=== PATIENT | female | born 2000 | race Caucasian/White ===

== ENCOUNTER 2022-08-03 21:20 | Emergency (ER) | payer OTHER, SELFPAY ==
[2022-08-03 21:26] VITALS: BP 155/99; PULSE 102; RESP 16; TEMP 36.7; O2SAT 100
--- NOTE | 2022-08-03 21:43 | W.ED.GENADLT ---
HPI - General Adult General: Chief complaint: Needlestick/Injury/Exposure Stated complaint: Needle stick Time Seen by Provider: 08/03/22 21:40 History of Present Illness: Ms. Gonzales is a 21-year-old female without significant past medical history presents to the emergency department due to needlestick while at work. 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 Immediately had some pain however no injection of residual Lovenox. Did wash the area. Reports history of vaccinations. Denies known exposure to hepatitis C or HIV. No other specific changes in health, exacerbating, or alleviating factors identified. Radiation: extremity Severity: mild Quality: burning and stabbing Associated symptoms: Reports no associated symptoms Review of Systems General: Reports: 10 or more systems reviewed and unremarkable except in HPI and below PFSH ED PFSH: Medical History No significant past medical history Surgical History No significant past surgical history Physical Exam Const: COMMON NORMALS: alert GENERAL APPEARANCE: cooperative and well developed HENMT: COMMON NORMALS: normocephalic and atraumatic HEAD & SCALP: normocephalic and atraumatic Eye: COMMON NORMALS: conjunctivae normal CONJUNCTIVA: Yes conjunctivae normal SCLERA: sclerae normal Neck/C-Spine: COMMON NORMALS: supple GENERAL: Yes trachea midline Resp: COMMON NORMALS: normal respiratory effort EFFORT & INSPECTION: Yes able to speak in complete sentences Cardio: COMMON NORMALS: regular rate and regular rhythm RATE: regular rate RHYTHM: regular rhythm GI: COMMON NORMALS: Soft to palpation PALPATION: Yes Soft to palpation and No Tenderness to palpation present (GI) Extremity: NARRATIVE EXTREMITY EXAM: Small nonbleeding puncture wound to the lateral dorsal aspect of the mid finger GENERAL: Yes normal exam except as noted and No edema Neuro: COMMON NORMALS: moves all extremities SENSORIUM/ORIENTATION: Yes alert and No Orientation impaired Psych: COMMON NORMALS: mental status grossly normal and Normal thought process present THOUGHT PROCESS: Normal thought process present Course Vital Signs: Vital signs: Vital Signs Temperature 98.1 F 08/03/22 21:26 Pulse Rate 102 H 08/03/22 21:26 Respiratory Rate 16 08/03/22 21:26 Blood Pressure 155/99 08/03/22 21:26 Pulse Oximetry 100 08/03/22 21:26 Oxygen Delivery Me thod 08/03/22 21:26 MDM - General Adult Medical Decision Making 21-year-old female presenting with needlestick injury that occurred at work. Weight And Test Bar Clerk notified and provided paperwork. Discussed testing appropriate per protocol and patient was agreeable. No evidence of hepatitis B infection, hepatitis C infection, or HIV. Patient is up-to-date on vaccines including tetanus shot. Unfortunately we are unable to obtain consent for source testing. I discussed this with the patient including options for postexposure prophylaxis. I discussed risk of transmission from unknown source and patient wishes to proceed with postexposure prophylaxis which will be ordered. Laboratory studies to evaluate hematologic and metabolic status ordered. Satisfactory for outpatient management. Medical Records I reviewed the patient's medical records. Lab Data I reviewed the patient's lab results. : 08/03/22 21:48 08/03/22 21:48 Laboratory Results WBC 7.8 10^3/uL (4.0-10.0) 08/03/22 21:48 RBC 4.55 10^6/uL (4.1-5.3) 08/03/22 21:48 Hgb 12.7 g/dL (11.5-15.3) 08/03/22 21:48 Hct 39.1 % (37.0-47.0) 08/03/22 21:48 MCV 85.9 fl (81-99) 08/03/22 21:48 MCH 27.9 pg (28.0-34.0) L 08/03/22 21:48 MCHC 32.5 g/dL (30.0-36.0) 08/03/22 21:48 RDW 13.4 % (12.1-15.1) 08/03/22 21:48 Plt Count 268 10^3/cmm (130-400) 08/03/22 21:48 MPV 10.9 fL (7.4-10.4) H 08/03/22 21:48 Neut % (Auto) 61.8 % 08/03/22 21:48 Lymph % (Auto) 29.0 % 08/03/22 21:48 [place] % (Auto) 7.5 % 08/03/22 21:48 Eos % (Auto) 0.9 % 08/03/22 21:48 Baso % (Auto) 0.5 % 08/03/22 21:48 Neut # (Auto) 4.79 10^3/uL (1.8-7.7) 08/03/22 21:48 Lymph # (Auto) 2.3 10^3/uL (0.8-4.8) 08/03/22 21:48 [place] # (Auto) 0.6 10^3/uL (0.2-0.9) 08/03/22 21:48 Eos # (Auto) 0.1 10^3/uL (0.0-0.8) 08/03/22 21:48 Baso # (Auto) 0.0 10^3/uL (0.0-0.1) 08/03/22 21:48 Nucleated RBC % (auto) 0 % 08/03/22 21:48 Nucleated RBCs # 0.0 /100WBC 08/03/22 21:48 Sodium 137 mmol/L (136-145) 08/03/22 21:48 Potassium 4.3 mmol/L (3.5-5.1) 08/03/22 21:48 Chloride 99 mmol/L (98-107) 08/03/22 21:48 Carbon Dioxide 23 mmol/L (22-29) 08/03/22 21:48 Anion Gap 19.3 (5-19) H 08/03/22 21:48 BUN 14 mg/dL (6-20) 08/03/22 21:48 Creatinine 0.8 mg/dL (0.5-0.9) 08/03/22 21:48 GFR Calculation 89.7 mL/min (90-130) L 08/03/22 21:48 Glucose 86 mg/dL (65-115) 08/03/22 21:48 Calculated Osmolality 284 mOsm/kg (285-295) L 08/03/22 21:48 Calcium 10.0 mg/dL (8.5-10.5) 08/03/22 21:48 Total Bilirubin 0.3 mg/dL (0.15-1.2) 08/03/22 21:48 AST 17 U/L (0-32) 08/03/22 21:48 ALT 12 U/L (0-33) 08/03/22 21:48 Alkaline Phosphatase 77 U/L (35-105) 08/03/22 21:48 Total Protein 8.0 g/dL (6.6-8.7) 08/03/22 21:48 Albumin 4.7 g/dL (3.5-5.2) 08/03/22 21:48 Globulin 3.3 g/dL (1.3-4.6) 08/03/22 21:48 HCG, Qual Negative (Negative) 08/03/22 21:40 Hep Bs Antigen Non-reactive (Nonreactive) 08/03/22 21:40 Hep Bs Antibody > 1000.0 (11.5-1000) H 08/03/22 21:40 Hepatitis C Antibody Non-reactive (Nonreactive) 08/03/22 21:40 HIV 1&2 Ab & HIV 1 Ag Non-reactive (Non-Reactiv) 08/03/22 21:40 HIV 1&2 Antibody Non-reactive (Non-Reactiv) 08/03/22 21:40 Discharge Plan Discharge Patient Disposition: Home Clinical Impression: Exposure to blood or body fluid, Needle stick injury of finger Condition: Stable Prescriptions: New Truvada 200-300 mg tablet 1 tab PO DAILY Qty: 28 0RF raltegravir 400 mg tablet 400 mg PO BID 28 Days Qty: 56 0RF Discharge Orders: Discharge ED (Routine); Ordered 08/03/22 Ordered By: Lonnie Bond Discharge Diet: Usual diet Discharge Activity: Increase activity as tolerated Patient Instructions: Needle Stick Injuries (ED), Postexposure Prophylaxis (ED) Activity Restrictions/Additional Instructions: Please follow-up with employee health. Return to the emergency department for any concerns that you have that you feel need emergency department evaluation. Coding Level of Care Code ED Packaging Line Attendant for Nicole Fwd Exam Comprehensive
[2022-08-03 22:24] LABS: HCG, Serum Qual Negative (Negative)
[2022-08-03 22:43] LABS: HIV 1 & 2 Antibody Non-Reactive (Non-Reactiv); HIV 1 & 2 Antigen Non-Reactive (Non-Reactiv)
[2022-08-03 23:10] LABS: Hepatitis B Surface Antigen Non-Reactive (Nonreactive); Hepatitis C Virus Antibody Non-Reactive (Nonreactive)
[2022-08-03 23:47] LABS: Basophils % 0.5 %; Eosinophils # 0.1 10^3/uL (0.0-0.8); Eosinophils % 0.9 %; Hematocrit 39.1 % (37.0-47.0); Hemoglobin 12.7 g/dL (11.5-15.3); Lymphocytes # 2.3 10^3/uL (0.8-4.8); Mean Corpuscular HGB Conc 32.5 g/dL (30.0-36.0); Mean Corpuscular Hemoglobin 27.9 pg (28.0-34.0); Mean Corpuscular Volume 85.9 fl (81-99); Mean Platelet Volume 10.9 fL (7.4-10.4); Monocytes # 0.6 10^3/uL (0.2-0.9); Monocytes % 7.5 %; Neutrophils # 4.79 10^3/uL (1.8-7.7); Neutrophils % 61.8 %; Nucleated Red Blood Cells % 0 %; Platelet Count 268 10^3/cmm (130-400); Red Blood Count 4.55 10^6/uL (4.1-5.3); Red Cell Distribution Width 13.4 % (12.1-15.1); White Blood Count 7.8 10^3/uL (4.0-10.0)
[2022-08-04 00:16] LABS: Alanine Aminotransferase 12 U/L (0-33); Albumin Level 4.7 g/dL (3.5-5.2); Alkaline Phosphatase 77 U/L (35-105); Aspartate Amino Transferase 17 U/L (0-32); Blood Urea Nitrogen 14 mg/dL (6-20); Carbon Dioxide 23 mmol/L (22-29); Chloride 99 mmol/L (98-107); Globulin 3.3 g/dL (1.3-4.6); Glomerular Filtration Rate 89.7 mL/min (90-130); Glucose 86 mg/dL (65-115); Osmolality Calculated 284 mOsm/kg (285-295); Sodium 137 mmol/L (136-145); Total Bilirubin 0.3 mg/dL (0.15-1.2)
[2022-08-04 00:30] LABS: Anion Gap 19.3 (5-19)
[2022-08-04 00:31] LABS: Potassium 4.3 mmol/L (3.5-5.1)
[2022-08-04 01:00] LABS: Hepatitis B Surface AB > 1000.0 (11.5-1000)
== END 2022-08-03 23:40 | disposition home or self-care (01) ==
PROVIDERS: Emergency Provider Emergency Medicine
DX: Z77.21 Contact with and (suspected) exposure to potentially hazardous body fluids (principal); W46.1XXA Contact with contaminated hypodermic needle, initial encounter; Y99.0 Civilian activity done for income or pay
CPT/HCPCS: 80053; 84703; 85025; 86706; 86803; 87340; 87806; 99283

== ENCOUNTER 2023-02-06 01:35 | Emergency (ER) | payer OTHER, SELFPAY ==
[2023-02-06 02:19] VITALS: BP 140/100; PULSE 107; RESP 18; O2SAT 99
--- NOTE | 2023-02-06 02:26 | W.ED.GENADLT ---
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 She states that she stuck herself in her left thumb with a dirty needle. Denies any pain currently has no other complaints at this time. Review of Systems Musc: Reports: extremity pain Skin/Breast: Reports: skin pain PFSH ED PFSH: Medical History No significant past medical history Surgical History No significant past surgical history Physical Exam Const: COMMON NORMALS: no acute distress and patient oriented x3 HENMT: COMMON NORMALS: normocephalic HEAD & SCALP: normocephalic Resp: COMMON NORMALS: normal respiratory effort Cardio: COMMON NORMALS: regular rate RATE: regular rate Extremity: NARRATIVE EXTREMITY EXAM: Puncture wound to left thumb no bleeding at this time Neuro: COMMON NORMALS: patient oriented x3 Psych: COMMON NORMALS: mental status grossly normal Skin: NARRATIVE SKIN EXAM: Puncture wound to left thumb Course Vital Signs: Vital signs: Vital Signs Pulse Rate 107 H 02/06/23 02:19 Respiratory Rate 18 02/06/23 02:19 Blood Pressure 140/100 02/06/23 02:19 Pulse Oximetry 99 02/06/23 02:19 Oxygen Delivery Me thod Room Air 02/06/23 02:19 MDM - General Adult Medical Decision Making Patient presents here with a needlestick injury to her left thumb HIV and hepatitis panel drawn she has no signs of any major injury bleeding controlled she is stable for discharge. Discharge Plan Discharge Patient Disposition: Home Clinical Impression: Needlestick injury accident Condition: Stable Prescriptions: No Action Truvada 200-300 mg tablet 1 tab PO DAILY Qty: 28 0RF Discharge Orders: Discharge ED (Routine); Ordered 02/06/23 Ordered By: Veda Lindsey Discharge Diet: Advance as tolerated Discharge Activity: Resume usual activity Patient Instructions: Needle Stick Injuries (ED) Coding Level of Care Code ED Pantograph Machine Set Up Operator for Nicole Johnson
[2023-02-06 03:12] LABS: HIV 1 & 2 Antibody Non-Reactive (Non-Reactiv); HIV 1 & 2 Antigen Non-Reactive (Non-Reactiv)
[2023-02-06 03:22] LABS: Hepatitis A Antibody IgM Non-Reactive (Nonreactive); Hepatitis B Core AB, Total Non-Reactive (Nonreactive); Hepatitis B Surface Antigen Non-Reactive (Nonreactive); Hepatitis C Virus Antibody Non-Reactive (Nonreactive)
[2023-02-06 04:47] LABS: Hepatitis B Surface AB > 1000.0 (11.5-1000)
--- NOTE | 2023-02-09 11:50 | DCPLANNER ---
Addendum entered by Vernell Bro 03/08/23 09:27: Patient had a follow up appointment scheduled with [facility] with Dr. Osborne - patient did attend appointment. Original Note: health club manager called patient due to no primary care physician - patient stated that she would like help in getting established with a provider. health club manager called [facility], gave clinic patients information. A follow up appointment was scheduled for Tuesday, March 07, 2023 at 11:[address] Osborne. Patient is aware of appointment.
== END 2023-02-06 02:44 | disposition home or self-care (01) ==
PROVIDERS: Emergency Provider Emergency Medicine
DX: S61.032A Puncture wound without foreign body of left thumb without damage to nail, initial encounter (principal); W46.1XXA Contact with contaminated hypodermic needle, initial encounter; Y99.0 Civilian activity done for income or pay
CPT/HCPCS: 86705; 86706; 86709; 86803; 87340; 87806; 99283

== ENCOUNTER → 2023-03-07 11:37 | Outpatient (BNVA) | payer OTHER, SELFPAY | PROVIDERS: PCP Family Medicine; Visit Provider Family Medicine | DX: Z12.4 Encounter for screening for malignant neoplasm of cervix (principal) | CPT/HCPCS: 88175 ==

== ENCOUNTER → 2023-03-22 16:58 | Outpatient (BNVA) | payer OTHER, SELFPAY | PROVIDERS: PCP Family Medicine; Visit Provider Family Medicine | DX: Z12.4 Encounter for screening for malignant neoplasm of cervix (principal); Z83.2 Family history of diseases of the blood and blood-forming organs and certain disorders involving the immune mechanism | CPT/HCPCS: 80074; 87806; 88175 ==

== ENCOUNTER 2023-09-19 22:49 | Emergency (ER) | payer OTHER, SELFPAY ==
[2023-09-19 22:58] VITALS: BP 144/103; PULSE 101; RESP 16; TEMP 36.8; O2SAT 99
--- NOTE | 2023-09-19 22:58 | W.ED.GENADLT ---
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 This just happened minutes ago she denies any pain currently. Associated symptoms: Deny chest pain, headache(s) or rash Review of Systems Const: Denies: fever(s) or chills ENMT: Denies: throat pain or dental pain Card: Denies: chest pain GI: Denies: abdominal pain Musc: Denies: neck pain or back pain Skin/Breast: Denies: rash Neuro: Denies: headache(s) PFSH ED PFSH: Medical History No significant past medical history Surgical History No history of previous surgery Family History Father Clotting disorder unprovoked dvt at 40, suspect F5L Sister Clotting disorder Grandfather Cancer melanoma Social History Smoking and tobacco/nicotine status: never used tobacco/nicotine Alcohol intake: never Substance/Drug Use: never Household members: spouse Marital status: Number of children: 0 Current occupational status: employed Current occupation: RN in the ED Leisure activites: other Leisure activities details: walking Sofía/Orthodox: Yazdanism Special sofía needs: No Agree to transfusion: Yes Course Vital Signs: Vital signs: Vital Signs Temperature 98.2 F 09/19/23 22:58 Pulse Rate 101 H 09/19/23 22:58 Respiratory Rate 16 09/19/23 22:58 Blood Pressure 144/103 09/19/23 22:58 Pulse Oximetry 99 09/19/23 22:58 [facility] - General Adult Medical Decision Making Patient presents after a needlestick injury blood was drawn she is stable for discharge No radiology studies performed this visit Discharge Plan Discharge Patient Disposition: Home Clinical Impression: Needlestick injury accident Condition: Stable Prescriptions: No Action No Known Home Medications Discharge Orders: Discharge ED (Routine); Ordered 09/19/23 Ordered By: Veda Lindsey Referrals: Eli Osborne MD [Primary Care Provider] - Discharge Diet: Advance as tolerated Discharge Activity: Resume usual activity Patient Instructions: Needle Stick Injuries (ED) Coding Level of Care Code ED Tool Machinist for Nicole Johnson
[2023-09-19 23:57] LABS: Hepatitis A Antibody IgM Non-Reactive (Nonreactive); Hepatitis B Core AB, Total Non-Reactive (Nonreactive); Hepatitis B Surface Antigen Non-Reactive (Nonreactive); Hepatitis C Virus Antibody Non-Reactive (Nonreactive)
[2023-09-20 00:28] LABS: Hepatitis B Surface AB > 1000.0 (11.5-1000)
[2023-09-27 10:32] LABS: HIV 1 & 2 Antibody Non-Reactive (Non-Reactiv); HIV 1 & 2 Antigen Non-Reactive (Non-Reactiv)
== END 2023-09-19 23:15 | disposition home or self-care (01) ==
PROVIDERS: Emergency Provider Emergency Medicine; PCP Family Medicine
DX: S61.234A Puncture wound without foreign body of right ring finger without damage to nail, initial encounter (principal); W46.0XXA Contact with hypodermic needle, initial encounter; Y92.239 Unspecified place in hospital as the place of occurrence of the external cause; Y99.0 Civilian activity done for income or pay
CPT/HCPCS: 86705; 86706; 86709; 86803; 87340; 87806; 99283

== ENCOUNTER 2023-12-24 23:30 | Emergency (ER) | payer OTHER, SELFPAY ==
[2023-12-24 23:36] VITALS: BP 171/99; PULSE 98; RESP 16; TEMP 36.7; O2SAT 99; BMI 26.6
[2023-12-24 23:47] VITALS: BP 150/95; PULSE 92; RESP 16; O2SAT 97
--- NOTE | 2023-12-24 23:56 | USR_ITS ---
PROCEDURE INFORMATION: Exam: US , Limited Exam date and time: 12/24/2023 11:27 PM Age: 23 years old Clinical indication: Lmp or gestational age (in weeks): 8w 1d; Antepartum complications; Bleeding and other: Cramping; ; Patient HX: G1-p0 presenting with spotting, cramping; Additional info: 8 wks gestation, cramping, bleeding LABS AND CLINICAL REPORTS: Gestational age (Established): 8 w 1 d Estimated due date (Established): 08/03/2024 TECHNIQUE: Imaging protocol: Real-time ultrasound of the maternal uterus with image documentation. Exam focused on the clinical indication. COMPARISON: No relevant prior studies available. FINDINGS: Gestation: Intrauterine gestation heart rate: 167 bpm Amniotic fluid: Amniotic fluid volume is normal. BIOMETRY: Gestational age (AUA): 8 w 1 d Estimated due date (AUA): 08/03/2024 MATERNAL: Uterus: Uterus measures 6.4 cm in height by 6.8 cm width Right ovary/adnexa: Right ovary measures 3.4 x 1.7 x 2.8 cm. Right ovarian volume is 8.38 mL. Left ovary/adnexa: Left ovary measures 2.0 x 2.0 x 1.4 cm. Left ovarian volume is 2.9 mL. US/ OB limited [id number] IMPRESSION: Single live intrauterine gestation with a gestational age of 8 weeks and 1 day.
--- NOTE | 2023-12-24 23:58 | ED_ITS ---
HPI - 2 General: Chief complaint: OB/Uterine Contractions Stated complaint: Vag Bleeding,cramping Time Seen by Provider: 12/24/23 23:50 History of Present Illness: Patient presents to the ER with complaints of vaginal bleeding and cramping x 1 day. Patient says she is 8 weeks by menstrual cycle. Patient is G1, P0, patient has never had bleeding or cramping before tonight. Patient denies any odor, discharge. Patient does have her OB appointment set up but she has not been to it yet. Date of Last Menstrual Period: 10/28/23 Related Data: : 1 Review of Systems 2 General: Reports: 10 or more systems reviewed and unremarkable except in HPI and below PFSH ED 2 PFSH: Medical History No significant past medical history Surgical History No history of previous surgery Family History Father Clotting disorder unprovoked dvt at 40, suspect F5L Sister Clotting disorder Grandfather Cancer melanoma Social History Smoking and tobacco/nicotine status: never used tobacco/nicotine Alcohol intake: never Substance/Drug Use: never Household members: spouse Marital status: Number of children: 0 Current occupational status: employed Current occupation: RN in the ED Leisure activites: other Leisure activities details: walking Sofía/Congregational: Yazidism Special sofía needs: No Agree to transfusion: Yes Female Reproductive History: Date of last menstrual period: 10/28/23 G ravida: 1 Physical Exam 2 Const: COMMON NORMALS: no acute distress, average body habitus, patient oriented x3, no limitations, healthy appearing, alert and well nourished Neck/C-Spine: COMMON NORMALS: no JVD Chest: COMMONS NORMALS: normal inspection of the chest and normal palpation of entire chest wall Resp: COMMON NORMALS: normal respiratory effort, No retractions, No use of accessory muscles and clear to auscultation bilaterally AUSCULTATION: clear to auscultation bilaterally Cardio: COMMON NORMALS: no JVD, regular rate, regular rhythm, S1 normal heart sound present, S2 normal heart sound present, No gallops present (Cardio), No clicks present (Cardio), No murmurs present (Cardio) and No rub (Cardio) R ATE: regular rate RHYTHM: regular rhythm HEART SOUNDS: S1 normal heart sound present and S2 normal heart sound present GI: COMMON NORMALS: Normal to inspection, nondistended, normoactive bowel sounds present, Soft to palpation, non-tender, No hepatosplenomegaly present and no masses PALPATION: Yes Soft to palpation and Yes No hepatosplenomegaly present Neuro: COMMON NORMALS: patient oriented x3 SENSORIUM/ORIENTATION: Yes alert Course 2 Vital Signs: Vital signs: Vital Signs Temperature 98.1 F 12/24/23 23:36 Pulse Rate 81 12/25/23 01:57 Respiratory Rate 18 12/25/23 01:57 Blood Pressure 115/71 12/25/23 01:57 Pulse Oximetry 96 12/25/23 01:57 Oxygen Delivery Me thod Room Air 12/24/23 23:47 MDM - OB/Uterine Contractions Medical Decision Making Patient with vaginal bleeding and cramping. Ultrasound was obtained which showed heart rate of about 160 beats a minute with a gestational age of 8 weeks and 1 day. Lab work was obtained which essentially unremarkable. These results was discussed with the patient and her they will follow-up with Dr. Anderson. Differential Diagnosis Unlikely normal delivery at term, hemorrhage, -induced hypertension, premature labor, pre-eclampsia or eclampsia Medical Records I reviewed the patient's medical records. Lab Data I reviewed the patient's lab results. 12/25/23 00:09 12/25/23 00:09 Radiology Impressions Obstetrics Ultrasound 12/24/23 23:56 IMPRESSION: Single live intrauterine gestation with a gestational age of 8 weeks and 1 day. Laboratory Results WBC 9.92 10^3/uL (3.29-11.43) 12/25/23 00:09 RBC 4.26 10^6/uL (3.85-5.65) 12/25/23 00:09 Hgb 12.80 g/dL (11.27-16.99) 12/25/23 00:09 Hct 37.1 % (36-47) 12/25/23 00:09 MCV 87.1 fl (85-98) 12/25/23 00:09 MCH 30.0 pg (27-33) 12/25/23 00:09 MCHC 34.5 g/dL (30-55) 12/25/23 00:09 RDW 12.0 % (12.1-15.1) L 12/25/23 00:09 Plt Count 200 10^3/cmm (157-399) 12/25/23 00:09 MPV 10.2 fL (7.4-10.4) 12/25/23 00:09 Neut % (Auto) 68.9 % 12/25/23 00:09 Lymph % (Auto) 21.9 % 12/25/23 00:09 [place] % (Auto) 7.6 % 12/25/23 00:09 Eos % (Auto) 1.0 % 12/25/23 00:09 Baso % (Auto) 0.3 % 12/25/23 00:09 Neut # (Auto) 6.84 10^3/uL (1.8-7.7) 12/25/23 00:09 Lymph # (Auto) 2.2 10^3/uL (0.8-4.8) 12/25/23 00:09 [place] # (Auto) 0.8 10^3/uL (0.2-0.9) 12/25/23 00:09 Eos # (Auto) 0.1 10^3/uL (0.0-0.8) 12/25/23 00:09 Baso # (Auto) 0.0 10^3/uL (0.0-0.1) 12/25/23 00:09 Nucleated RBC % (auto) 0 % 12/25/23 00:09 Nucleated RBCs # 0.0 /100WBC 12/25/23 00:09 Sodium 137 mmol/L (136-145) 12/25/23 00:09 Potassium 3.9 mmol/L (3.5-5.1) 12/25/23 00:09 Chloride 103 mmol/L (98-107) 12/25/23 00:09 Carbon Dioxide 22 mmol/L (22-29) 12/25/23 00:09 Anion Gap 15.9 (5-19) 12/25/23 00:09 BUN 6 mg/dL (6-20) 12/25/23 00:09 Creatinine 0.6 mg/dL (0.5-0.9) 12/25/23 00:09 GFR Calculation 122.8 mL/min (90-130) 12/25/23 00:09 Glucose 113 mg/dL (65-115) 12/25/23 00:09 Calculated Osmolality 282 mOsm/kg (285-295) L 12/25/23 00:09 Calcium 8.8 mg/dL (8.5-10.5) 12/25/23 00:09 Total Bilirubin 0.2 mg/dL (0.15-1.2) 12/25/23 00:09 AST 25 U/L (0-32) 12/25/23 00:09 ALT 51 U/L (0-33) H 12/25/23 00:09 Alkaline Phosphatase 60 U/L (35-105) 12/25/23 00:09 Total Protein 6.8 g/dL (6.6-8.7) 12/25/23 00:09 Albumin 3.9 g/dL (3.5-5.2) 12/25/23 00: Globulin 2.9 g/dL (1.3-4.6) 12/25/23 00:09 Ser , Semi-Qnt 350301.00 mIU/mL 12/25/23 00:09 Urine Color Yellow (Yellow) 12/25/23 00:09 Urine Appearance Clear (CLEAR) 12/25/23 00:09 Urine pH 5 (5-7) 12/25/23 00:09 Ur Specific [place] 1.025 (1.005-1.030) 12/25/23 00:09 Urine Protein Neg (Negative) 12/25/23 00:09 Urine Glucose (UA) Norm (Normal) 12/25/23 00:09 Urine Ketones Negative (Negative) 12/25/23 00:09 Urine Blood 2+ (Negative) H 12/25/23 00:09 Urine Nitrate Negative (Negative) 12/25/23 00:09 Urine Bilirubin Neg (Negative) 12/25/23 00:09 Urine Urobilinogen Norm mg/dL (Negative) 12/25/23 00:09 Ur Leukocyte Esterase 1+ (Negative) H 12/25/23 00:09 Urine RBC 0-4 /hpf (0-2) H 12/25/23 00:09 Urine WBC 5-10 /hpf (0-5) H 12/25/23 00:09 Ur Squamous Epith Cells 0-4 /hpf (0-5) H 12/25/23 00:09 Amorphous Sediment Not Reportable 12/25/23 00:09 Urine Bacteria Trace /hpf (NONE) 12/25/23 00:09 All radiology interpretation(s) finalized by discharge Discharge Plan Discharge Patient Disposition: Home Clinical Impression: Vaginal bleeding in Condition: Stable Prescriptions: No Action No Known Home Medications Discharge Orders: Discharge ED (Routine); Ordered 12/25/23 Ordered By: Braydon Garzon Referrals: Eli Osborne MD [Primary Care Provider] - Patient Instructions: (ED) Activity Restrictions/Additional Instructions: Your evaluation today in the ER showed a fetus with a gestational age of approximately 8 weeks and 1 day, your quantitative beta-hCG was 133,011. Please call your OB and inform them of your visit here. If you have worsening bleeding or more cramping please feel free to follow-up with your OB or return to the ER for further evaluation. Coding Level of Care Code ED Audience Coordinator for Nicole Johnson
[2023-12-25 00:09] VITALS: BP 127/80; PULSE 84; RESP 16; O2SAT 96
[2023-12-25 00:13] LABS: Basophils % 0.3 %; Eosinophils # 0.1 10^3/uL (0.0-0.8); Hematocrit 37.1 % (36-47); Lymphocytes # 2.2 10^3/uL (0.8-4.8); Lymphocytes % 21.9 %; Mean Corpuscular HGB Conc 34.5 g/dL (30-55); Mean Corpuscular Volume 87.1 fl (85-98); Mean Platelet Volume 10.2 fL (7.4-10.4); Monocytes # 0.8 10^3/uL (0.2-0.9); Monocytes % 7.6 %; Neutrophils # 6.84 10^3/uL (1.8-7.7); Neutrophils % 68.9 %; Nucleated Red Blood Cells % 0 %; Platelet Count 200 10^3/cmm (157-399); Red Blood Count 4.26 10^6/uL (3.85-5.65); White Blood Count 9.92 10^3/uL (3.29-11.43)
[2023-12-25 00:25] LABS: Add Urine Microscopic? YES; Bilirubin Urine Neg (Negative); Blood Urine 2+ (Negative); Glucose Urine UA Norm (Normal); Ketones Urine Negative (Negative); Leukocyte Esterase Urine 1+ (Negative); Nitrate Urine Negative (Negative); Protein Urine Neg (Negative); RBC Urine 0-4 /hpf (0-2); Specific Gravity, Urine 1.025 (1.005-1.030); Urine Appearance Clear (CLEAR); Urine Color Yellow (Yellow); Urobilinogen Urine Norm (Negative); pH Urine 5 (5-7)
[2023-12-25 00:26] LABS: Add Urine Culture? No; Bacteria Urine TRACE /hpf; Squamous Epithelial Cell Urine 0-4 /hpf (0-5)
[2023-12-25 00:49] LABS: Alanine Aminotransferase 51 U/L (0-33); Albumin Level 3.9 g/dL (3.5-5.2); Alkaline Phosphatase 60 U/L (35-105); Anion Gap 15.9 (5-19); Aspartate Amino Transferase 25 U/L (0-32); Blood Urea Nitrogen 6 mg/dL (6-20); Calcium 8.8 mg/dL (8.5-10.5); Carbon Dioxide 22 mmol/L (22-29); Chloride 103 mmol/L (98-107); Creatinine Clr Calc Pharmacy 149.5369; Globulin 2.9 g/dL (1.3-4.6); Glomerular Filtration Rate 122.8 mL/min (90-130); Glucose 113 mg/dL (65-115); Osmolality Calculated 282 mOsm/kg (285-295); Potassium 3.9 mmol/L (3.5-5.1); Sodium 137 mmol/L (136-145); Total Bilirubin 0.2 mg/dL (0.15-1.2); Total Protein 6.8 g/dL (6.6-8.7)
[2023-12-25 00:54] VITALS: BP 135/83; PULSE 113; RESP 16; O2SAT 91
[2023-12-25 01:00] VITALS: BP 133/75; PULSE 84; RESP 16; O2SAT 95
[2023-12-25 01:30] VITALS: BP 115/71; PULSE 79; RESP 18; O2SAT 94
[2023-12-25 01:57] VITALS: BP 115/71; PULSE 81; RESP 18; O2SAT 96
== END 2023-12-25 01:58 | disposition home or self-care (01) ==
PROVIDERS: Emergency Provider Emergency Medicine; PCP Family Medicine
DX: O20.9 Hemorrhage in early pregnancy, unspecified (principal); Z3A.08 8 weeks gestation of pregnancy
CPT/HCPCS: 76815; 80053; 81001; 84702; 85025; 99284

== ENCOUNTER 2024-07-30 12:19 | Inpatient (IN) | payer OTHER, SELFPAY ==
[2024-07-30] VITALS (59 sets, daily range): BP systolic 102–159; BP diastolic 60–98; PULSE 85–130; RESP 16–17; O2SAT 98–100; BMI 30.2
[2024-07-30] MEDS: miSOPROStol 100 mcg tablet 25 MCG SUBLINGUAL (10:29)
[2024-07-30 13:18] LABS: Basophils % 0.3 %; Eosinophils # 0.1 10^3/uL (0.0-0.8); Eosinophils % 0.9 %; Hematocrit 34.5 % (36-47); Lymphocytes # 1.7 10^3/uL (0.8-4.8); Lymphocytes % 14.4 %; Mean Corpuscular HGB Conc 34.2 g/dL (30-55); Mean Corpuscular Hemoglobin 31.7 pg (27-33); Mean Corpuscular Volume 92.7 fl (85-98); Mean Platelet Volume 10.7 fL (7.4-10.4); Monocytes # 0.9 10^3/uL (0.2-0.9); Monocytes % 7.6 %; Neutrophils # 8.66 10^3/uL (1.8-7.7); Neutrophils % 75.5 %; Nucleated Red Blood Cells % 0 %; Platelet Count 247 10^3/cmm (157-399); Red Blood Count 3.72 10^6/uL (3.85-5.65); White Blood Count 11.46 10^3/uL (3.29-11.43)
[2024-07-30] MEDS: ondansetron 2 mg/ML SDV 2 mL 4 MG IVP (17:05)
[2024-07-30] MEDS: fentaNYL 50 mcg/mL INJ 2mL IVP ×3 (17:06→19:21)
[2024-07-30] MEDS: oxytocin 30 UNIT/500 ML BAG IV (19:00)
[2024-07-30] MEDS: lactated ringers 1,000 ML 999 ML IV (19:45)
--- NOTE | 2024-07-30 20:40 | PC.NURSE ---
07/30/24 at 2023 pitocin rate decreased from 4 to 2 per patient request. Patient not tolerating pain from contractions well.
[2024-07-30] MEDS: ROPivacaine syringe 100 MG/50 ML SYRINGE 13 MG EPIDURAL (20:50)
--- NOTE | 2024-07-30 20:50 | P.ANESUD_ITS ---
Pre-Anesthetic Update Pre-Anesthetic Assessment: Date of Surgery/Procedure: 07/30/24 Preop Madyson gnosis: labor pain Proposed Procedure: epidural Any changes to Pre-Anesthetic Assessment?: No Labs Last 48hrs: Short CBC 07/30/24 Range/Units 10:48 WBC 11.46 H (3.29-11.43) 10^ 3/uL Hgb 11.80 (11.27-16.99) g/ dL Hct 34.5 L (36-47) % MCV 92.7 (85-98) fl Plt Count 247 (157-399) 10^3/c mm Neut % (Auto) 75.5 % Neut # (Auto) 8.66 H (1.8-7.7) 10^3/u L Blood Bank 07/30/24 10:48 Blood Type O Positive Rho(D) Type Rh positive Antibody Screen Negative Vitals: Pulse Rate 107 H 07/30/24 20:45 Pulse Rhythm Regular 07/30/24 10:00 Respiratory Rate 16 07/30/24 19:21 Respiratory Effort Spontaneous, Non- Labored, Easy 07/30/24 18:06 Respiratory Depth Normal 07/30/24 19:21 Respiratory Patter n Normal 07/30/24 19:21 Blood Pressure 133/85 07/30/24 20:45 Pulse Oximetry 100 07/30/24 20:43 Oxygen Delivery Me thod Room Air 07/30/24 18:16 Exam: Pre-Anes Outpt Exam: alert and oriented x 3 Cardiac Studies: No Data to Display
--- NOTE | 2024-07-30 20:51 | P.ANES_ITS ---
Anesthesia Procedures Procedure/Date: 07/30/24 Epidural: Time Out Performed: Yes Consents Signed: Procedure Consent Consent: from patient, risks and benefits reviewed and patient agrees to proceed Lumbar Level: L4-L5 Epidural position: sitting Epidural procedure: sterile prep of area, 1% lidocaine to numb the area, 18 g needle, negative for paresthesia passed, neg for paresthesia, test dose given, 1.5% xylocaine 1:200k epi, placed PCEA, no systemic response, sterile dressing applied, L.U.D. no apparent complications and 0.2% Ropiavacaine @ mls/hr (13) Additional Comments: BALDEMAR at 5.5, negative heme/CSF upon aspiration. taped at 13 at skin. pt reports numb on left side, pain on right. tilted onto right side and bolus given of 100mcg fentanyl and 3mL 0.25% bupi at 2103. another 3ml .25% bupi given at 2112 for right sided pain, tilted all the way up on right side and catheter pulled out to 11 at skin. 5ml 2% lido given at 2130 and 2137. pt s tates left side is completely numb. pain is on right side lower abdomen.states she does not want to replace catheter at this time.
--- NOTE | 2024-07-30 23:20 | PM.OPHPUD ---
Labor & Delivery H&P Update Date of Procedure: July 30, 2024 Date H&P Performed: 07/28/24 Changes to previous documentation: The patient presented to the hospital with spontaneous rupture membranes Admission Diagnosis: 23-year-old 1 at 39 weeks estimated gestational age presenting with spontaneous rupture membranes Preop diagnosis: labor pain Planned procedure: Vaginal delivery Other information: The patient is an otherwise healthy 23-year-old female at 39 weeks estimated gestational age who presented with spontaneous rupture membranes. She was checked and found to be nitrazine positive. Her vaginal vault was full of fluid. Her membranes had ruptured shortly before arriving at the hospital. Otherwise her had been completely unremarkable. Her blood type is O+. Her antibody screen was negative. Her RPR was nonreactive. Her HIV was not reactive. She is rubella immune. Her Pap test was within normal limits. Her drug screen was negative. Her HCV was negative. She passed her 3-hour glucose screen. She was GBS negative. Related Problem List Diagnoses (1) 39 weeks gestation of : (2) Spontaneous rupture of membranes: A&P Assessment and plan (1) 39 weeks gestation of : The patient was not having contractions. She was placed on Cytotec 25 mcg sublingual. She was also placed on Pitocin. An epidural was placed. heart tones have been category 1 throughout most of her hospital stay. Status: Acute (2) Spontaneous rupture of membranes: Status: Acute
[2024-07-31] VITALS (26 sets, daily range): BP systolic 106–133; BP diastolic 56–83; PULSE 91–151; RESP 18; TEMP 36.7
[2024-07-31] MEDS: lidocaine 2% INJ 20 mL INJECTION (01:48)
--- NOTE | 2024-07-31 02:43 | P.PCNOB_ITS ---
Delivery Note: Date of delivery: July 31, 2024 Pre-delivery diagnoses: 23-year-old 1 at 39 weeks estima shruthi gestational age presenting with spontaneous rupture membranes Post-delivery diagnoses: Status post spontaneous vaginal delivery with fourth degree repair. Procedure: Spontaneous vaginal delivery and fourth degree posterior midline repair Delivering Physician: Clay Anderson Estimated blood loss (mL): 100 Pre-Delivery Course: The patient presented to the hospital with spontaneous rupture membranes. She was not having any contractions. She was started on Cytotec 25 mcg x 1. After 4 hours she had made minimal cervical change but was having consistent contractions and was getting more painful. We waited for about an hour before starting Pitocin. An epidural was placed. She then progressed to complete without difficulty. Delivery: DELIVERY: The patient progressed to complete without difficulty. She delivered a male with a weight of [] with Apgars of 10, 10. The baby was delivered from the MATEUSZ position. and placed on the mother's abdomen. The cord was then clamped and cut. There was no nuchal cord. There was no meconium. The placenta and 3 vessel cord were delivered intact shortly thereafter. The perineum and vaginal vault were carefully examined. A posterior midline fourth degree tear was noted. After getting vaginal retraction from 2 assistants making sure gliding was appropriate, the rectal mucosa was closed with 3-0 Vicryl in a running stitch. The endopelvic fascia was then closed using a running stitch with 3-0 Vicryl as well. I then identified the anal sphincter and utilized Allises to mobilize both sides of the sphincter. There were then reapproximated with 3-0 Vicryl with 2 separate interrupted stitches. I then repaired the the vaginal mucosa in the perineum in usual fashion. 1 dose of Ancef 2 g was given. Both the mother and the baby were in stable condition. Post-Delivery Status: Good. History History History 1 Term Miscarriages/Ectopic Living Children A&P Assessment and plan (1) Spontaneous vaginal delivery: (2) Fourth degree perineal laceration: I discussed with the patient the importance of having stools that are loose, and not straining. We will make sure she takes both docusate and senna lax for the next 4 weeks. We discussed the risk of rectal mucosal breakdown as well as the risk of anal incontinence. She and her had no further questions. Coding Level of Care Code Acute Code for Chg Fwd Diagnoses Spontaneous vaginal delivery O80 Fourth degree perineal laceration O70.3
[2024-07-31] MEDS: ceFAZolin 2,000 mg SDV 2000 MG IVP (03:53)
[2024-07-31] MEDS: HYDROcodone-acetaminophen 5-325 mg Tablet PO ×2 (06:25→11:20)
[2024-07-31] MEDS: ondansetron 2 mg/ML SDV 2 mL 4 MG IVP ×2 (06:28→11:20)
[2024-07-31] MEDS: benzocaine-menthol 78 gm Canister 1 SPRAY TOPICAL (06:36)
[2024-07-31] MEDS: ibuprofen 800 mg tablet PO ×3 (11:20→21:39)
[2024-07-31] MEDS: PRENATAL VIT NO.130/IRON/FOLIC 1 EACH TABLET PO (11:20)
[2024-07-31] MEDS: docusate sodium 100 mg Capsule PO ×2 (11:20→21:39)
[2024-07-31 18:20] LABS: Hematocrit 31.1 % (36-47); Mean Corpuscular HGB Conc 33.1 g/dL (30-55); Mean Corpuscular Hemoglobin 31.7 pg (27-33); Mean Corpuscular Volume 95.7 fl (85-98); Mean Platelet Volume 10.1 fL (7.4-10.4); Platelet Count 198 10^3/cmm (157-399); Red Blood Count 3.25 10^6/uL (3.85-5.65); Red Cell Distribution Width 12.4 % (12.1-15.1); White Blood Count 16.73 10^3/uL (3.29-11.43)
[2024-07-31] MEDS: sennosides 8.6 mg Tablet 17.2 MG PO (22:13)
[2024-08-01 06:05] VITALS: BP 107/72; PULSE 98; RESP 16; TEMP 36.6
--- NOTE | 2024-08-01 07:42 | PM.OBGYDC ---
Discharge Providers [employer] Date of Admission: 07/30/24 12:19 Date of Discharge: 08/01/24 Attending Provider at Admission: Clay Anderson MD Attending Provider at Discharge: Clay Anderson MD Primary Care Provider: Eli Osborne MD Diagnoses at Discharge Discharge Diagnosis (1) Spontaneous vaginal delivery: Status: Acute (2) Fourth degree perineal laceration: Details from hospital stay: Education provided about how to manage her fourth degree tear. Patient was encouraged to eat high-fiber and drink plenty of fluids. We will provide Colace to help with stool softening. Patient is aware that narcotic medications can cause constipation so she does not wish to utilize them. Status: Acute Reason for Visit Reason for Visit: possible rupture of membranes Hospital Course Hospital Course This is a 23-year-old G1, P1 presented at 39 weeks with rupture membranes. The patient was given Cytotec x 1 to help initiate labor. The patient made minimal cervical change after Cytotec and Pitocin was then started. Patient then progressed to completion as expected. The patient delivered vaginally a viable infant male. Review the perineum did show a fourth degree repair that was repaired in an appropriate layered fashion. care has been unremarkable since. Patient states that her pain is well-controlled. The patient does not had a bowel movement since delivery. Information Peripartum Data: Infant Delivery Method: Vaginal Physical Exam Const: COMMON NORMALS: no acute distress, patient oriented x3 and healthy appearing HENMT: COMMON NORMALS: normocephalic HEAD & SCALP: normocephalic Neck/C-Spine: COMMON NORMALS: no JVD Resp: COMMON NORMALS: normal respiratory effort and No retractions Cardio: COMMON NORMALS: no JVD, regular rate and regular rhythm RATE: regular rate RHYTHM: regular rhythm GI: OTHER: Uterus firm and below umbilicus Extremity: COMMON NORMALS: full ROM and no clubbing, cyanosis or edema Neuro: COMMON NORMALS: patient oriented x3 Psych: COMMON NORMALS: mental status grossly normal and cooperative Skin: COMMON NORMALS: no rashes or lesions noted GENERAL SKIN EXAM: no rashes or lesions noted Urinary Catheter Management: Delatorre Latex: Cath Placed During This Visit: yes Urinary Catheter Date of Insertion: 07/30/24 Urinary Catheter Time of Insertion: 21:40 History History History 1 Term Miscarriages/Ectopic Living Children Discharge Data Studies Completed and Pending Laboratory Results WBC 16.73 10^3/uL (3.29-11.43) H 07/31/24 17:57 RBC 3.25 10^6/uL (3.85-5.65) L 07/31/24 17:57 Hgb 10.30 g/dL (11.27-16.99) L 07/31/24 17:57 Hct 31.1 % (36-47) L 07/31/24 17:57 MCV 95.7 fl (85-98) 07/31/24 17:57 MCH 31.7 pg (27-33) 07/31/24 17:57 MCHC 33.1 g/dL (30-55) 07/31/24 17:57 RDW 12.4 % (12.1-15.1) 07/31/24 17:57 Plt Count 198 10^3/cmm (157-399) 07/31/24 17:57 MPV 10.1 fL (7.4-10.4) 07/31/24 17:57 Neut % (Auto) 75.5 % 07/30/24 10:48 Lymph % (Auto) 14.4 % 07/30/24 10:48 [place] % (Auto) 7.6 % 07/30/24 10:48 Eos % (Auto) 0.9 % 07/30/24 10:48 Baso % (Auto) 0.3 % 07/30/24 10:48 Neut # (Auto) 8.66 10^3/uL (1.8-7.7) H 07/30/24 10:48 Lymph # (Auto) 1.7 10^3/uL (0.8-4.8) 07/30/24 10:48 [place] # (Auto) 0.9 10^3/uL (0.2-0.9) 07/30/24 10:48 Eos # (Auto) 0.1 10^3/uL (0.0-0.8) 07/30/24 10:48 Baso # (Auto) 0.0 10^3/uL (0.0-0.1) 07/30/24 10:48 Nucleated RBC % (auto) 0 % 07/30/24 10:48 Nucleated RBCs # 0.0 /100WBC 07/30/24 10:48 Blood Type O Positive 07/30/24 10:48 Rho(D) Type Rh positive 07/30/24 10:48 Antibody Screen Negative 07/30/24 10:48 Vitals Last Vital Signs Temp 97.8 F 08/01/24 06:05 Pulse 98 08/01/24 06:05 Resp 16 08/01/24 06:05 BP 107/72 08/01/24 06:05 Pulse Ox 99 07/30/24 20:58 O2 Del Method Room Air 07/30/24 18:16 Results Labs OB ([facility]): Obstetrics US 12/24/23 Blood Type O Positive 07/30/24 Antibody Screen Negative 07/30/24 Hct 31.1 % (36-47) L 07/31/24 Hgb 10.30 g/dL (11.27-16.99) L 07/31/24 Rho(D) Type Rh positive 07/30/24 Plt Count 198 10^3/cmm (157-399) 07/31/24 Hep Bs Antigen Non-reactive (Nonreactive) 09/19/23 Hep B Core IgM Ab Non-reactive (Nonreactive) 03/22/23 Hep B Core Total Ab Non-reactive (Nonreactive) 09/19/23 Hep Bs Antibody > 1000.0 (11.5-1000) H 09/19/23 Hepatitis C Antibody Non-reactive (Nonreactive) 09/19/23 HIV 1&2 Ab & HIV 1 Ag Non-reactive (Non-Reactiv) 09/19/23 Ser , Semi-Qnt 525659.00 mIU/mL 12/25/23 Pap Smear Interpret See note 03/07/23 Discharge Plan Discharge Patient Disposition: Home Condition: Stable Prescriptions: New docusate sodium 100 mg Capsule 100 mg PO BID Qty: 30 0RF Discharge Orders: Discharge Order (Routine); Ordered 08/01/24 Ordered By: Harpreet Moore Referrals: Clay Anderson MD [Physician] - 7-10 days Discharge Diet: Usual diet and As Directed Discharge Activity: Limit activity as instructed Patient Instructions: Depression (DC), Opioid Safety (DC), Preeclampsia and Eclampsia After Delivery (GEN), Hemorrhage (DC), OB Discharge Report, OB Food/Drug Interaction Guide, OB Care at Home, Opioid Safety, OB Vaginal Deliveries, Abnormal Bleeding Discharge Attestations [employer] Time Spent in Discharge Care*: less than 30 min Coding Level of Care Code Acute Code for Chg Fwd Diagnoses Spontaneous vaginal delivery O80 Fourth degree perineal laceration O70.3
--- NOTE | 2024-08-01 08:00 | ANE.PACU2 ---
Inpatient post-anesthesia follow up: Airway intact: Yes Vital signs: Temperature 98.0 F Pulse Rate 93 Respiratory Rate 16 Blood Pressure 119/63 Pulse Oximetry 98 Oxygen Delivery Me thod Room Air Oxygen Flow Rate Fraction of Inspir ed Oxygen Hydration adequate: Yes Nausea and vomiting: No Pain level: 1 Mental status: Baseline Epidural Start/End: Epidural Start Date: 07/30/24 Epidural Start Time: 20:30 Epidural End Date: 07/31/24 Epidural End Time: 06:10
[2024-08-01] MEDS: ibuprofen 800 mg tablet PO (09:08)
[2024-08-01] MEDS: docusate sodium 100 mg Capsule PO (09:08)
[2024-08-01] MEDS: PRENATAL VIT NO.130/IRON/FOLIC 1 EACH TABLET PO (09:08)
[2024-08-01 10:45] VITALS: BP 119/63; PULSE 93; RESP 16; TEMP 36.7; O2SAT 98
== END 2024-08-01 10:55 | disposition home or self-care (01) | DRG 768 ==
LOC: OPOB 12:19 → OBGYN 12:19
PROVIDERS: Admitting Provider Family Medicine; PCP Family Medicine; Visit Provider Family Medicine
DX: O70.3 Fourth degree perineal laceration during delivery (principal); Z37.0 Single live birth; Z3A.39 39 weeks gestation of pregnancy
CPT/HCPCS: 36415; 51702; 59025; 59409; 83986; 85025; 85027; 86850; 86900; 96374; 96376; 98960; 99211; J0690; J2405; J2590; J2795; J3010; J3490; J7120